=== PATIENT | male | born 1955 | race Caucasian/White ===

== ENCOUNTER 2022-05-11 10:40 | Day surgery (SDC) | payer MEDICARE, MEDICAID ==
[2022-05-11] VITALS (9 sets, daily range): BP systolic 97–149; BP diastolic 58–82
[~2022-05-11] VITALS: Ht 177.8 cm; Wt 79.7 kg
[2022-05-11] MEDS ORDERED: LORazepam 0.5 MG tablet PO PRN (11:10)
[2022-05-11] MEDS ORDERED: diphenhydrAMINE 25mg capsule PO PRN (11:10)
[2022-05-11] MEDS ORDERED: normal saline 1,000 ML IV SCH (11:10)
[2022-05-11] MEDS ORDERED: L. A1CAP2 PO (11:25)
[2022-05-11] MEDS ORDERED: [UNRECOGNIZED DRUG - CODE] PO (11:25)
[2022-05-11] MEDS ORDERED: ALBU18HF2 INH (11:25)
[2022-05-11] MEDS ORDERED: MULT9LIQ6 PO (11:25)
[2022-05-11] MEDS ORDERED: CHOL20002 PO (11:25)
[2022-05-11] MEDS ORDERED: FLUT15.815 (11:25)
[2022-05-11] MEDS ORDERED: FLO110IN (11:25)
[2022-05-11] MEDS ORDERED: ACET-1131 PO (11:25)
[2022-05-11] MEDS ORDERED: MAGN1TAB PO (11:25)
[2022-05-11] MEDS ORDERED: ATEN-27 PO (11:25)
[2022-05-11] MEDS ORDERED: CETI-194 PO (11:25)
[2022-05-11] MEDS ORDERED: [UNRECOGNIZED DRUG - OTHER] PO (11:25)
[2022-05-11 11:43] LABS: BASOPHILS % (AUTO) 0.2 % (0-1); EOSINOPHILS # (AUTO) 0.1 X10'3 (0-0.9); EOSINOPHILS % (AUTO) 2.8 % (0-6); HEMATOCRIT 42.8 % (42.0-52.0); HEMOGLOBIN 14.8 g/dl (14.0-17.9); LYMPHOCYTES # (AUTO) 0.7 X10'3 (1.1-4.8); LYMPHOCYTES % (AUTO) 13.6 % (21-51); MEAN CORPUSCULAR HEMOGLOBIN 30.3 PG (27.0-31.0); MEAN CORPUSCULAR HGB CONC 34.6 g/dL (33.0-36.5); MEAN CORPUSCULAR VOLUME 87.5 FL (78-98); MEAN PLATELET VOLUME 8.7 FL (7.4-10.4); MONOCYTES # (AUTO) 0.6 X10'3 (0-0.9); MONOCYTES % (AUTO) 11.1 % (2-12); NEUTROPHILS # (AUTO) 3.8 X10'3 (1.8-7.7); NEUTROPHILS % (AUTO) 72.3 % (42-75); PLATELET COUNT 159 X10'3 (140-440); RED BLOOD COUNT 4.89 X10'6 (4.70-6.10); RED CELL DISTRIBUTION WIDTH 13.8 % (11.5-14.5); WHITE BLOOD COUNT 5.2 X10'3 (4.5-11.0)
[2022-05-11 11:52] LABS: ALBUMIN 4.2 G/DL (3.4-5.0); ANION GAP 10 (8-16); BLOOD UREA NITROGEN 14 MG/DL (7-18); BUN/CREATININE RATIO 11.2 (5.4-32.0); CALCIUM 9.2 MG/DL (8.5-10.1); CHLORIDE 105 MMOL/L (99-107); CREATININE 1.25 MG/DL (0.60-1.10); GLUCOSE 98 MG/DL (70-104); SODIUM 143 MMOL/L (135-145); TOTAL CARBON DIOXIDE 28.1 MMOL/L (24-32); eGFR 57 ML/MIN
[2022-05-11 11:54] LABS: APTT 32 SECONDS (22-32)
[2022-05-11 11:56] LABS: CHOL/HDL RATIO 2.7 (0.00-4.99); CHOLESTEROL 141 MG/DL (0-200); HDL CHOLESTEROL 53 MG/DL (35-60); LDL CHOLESTEROL 78 MG/DL (50-100); TRIGLYCERIDES 48 MG/DL (20-135)
[2022-05-11] MEDS ORDERED: LIDOcaine 1% (10mg/ml) 2ml vial ONE (11:57)
[2022-05-11] MEDS ORDERED: nitroGLYCERIN-Tridil 50MG/D5W 250 ML IV ONE (11:57)
[2022-05-11] MEDS ORDERED: midazolam 1 mg/ML 2ml injection ONE (11:57)
[2022-05-11] MEDS ORDERED: verapamil 2.5 mg/ml inj IV ONE (11:57)
[2022-05-11] MEDS ORDERED: heparin 1,000unit/ml 10ml vial 10 ML ONE (11:57)
[2022-05-11] MEDS ORDERED: fentaNYL/PF 50MCG/1 ML 2ML syringe ONE (11:57)
[2022-05-11] MEDS ORDERED: iohexol 350MG/ML 100ml bottle IV ONE ×2 (11:58→12:19)
[2022-05-11] MEDS ORDERED: LIDOcaine 1% 30ml preserv. free vial ONE (13:05)
[2022-05-19] MEDS ORDERED: AMIO200T61 PO (14:41)
== END 2022-05-11 17:00 | disposition home or self-care (01) ==
LOC: SSTAY O 10:40
PROVIDERS: ATTEND Student in an Organized Health Care Education/Training Program
DX: R94.39 Abnormal result of other cardiovascular function study (principal); I25.10 Atherosclerotic heart disease of native coronary artery without angina pectoris; I34.0 Nonrheumatic mitral (valve) insufficiency; I48.91 Unspecified atrial fibrillation; Z79.01 Long term (current) use of anticoagulants; Z79.899 Other long term (current) drug therapy; Z98.890 Other specified postprocedural states
CPT/HCPCS: 36415; 80048; 80061; 85025; 85610; 85730; 93005; 93458; 99152; 99153; A6258; C1760; C1769; C1894; J1644; J2250; J3010; J3490; J7030; Q0163; Q9967; A4620

== ENCOUNTER 2022-06-08 11:25 | Outpatient (CLI) | payer MEDICARE, MEDICAID ==
[~2022-06-08 11:25] MED LIST: ACET-1131 PO; ALBU18HF2 INH; AMIO200T67 PO; ATEN-27 PO; CETI-194 PO; CHOL20002 PO; CLOP75TA34 PO; FLO0.4C PO; FLO110IN; HYDR-3964 PO; L. A1CAP2 PO; MAGN1TAB PO; MULT9LIQ6 PO; [UNRECOGNIZED DRUG - CODE] PO; [UNRECOGNIZED DRUG - OTHER] PO
[2022-06-08 12:15] LABS: ANION GAP 8 (8-16); BASOPHILS % (AUTO) 0.3 % (0-1); BLOOD UREA NITROGEN 23 MG/DL (7-18); CHLORIDE 104 MMOL/L (99-107); CREATININE 1.47 MG/DL (0.60-1.10); EOSINOPHILS # (AUTO) 0.1 X10'3 (0-0.9); EOSINOPHILS % (AUTO) 0.6 % (0-6); GLUCOSE 120 MG/DL (70-104); HEMATOCRIT 33.8 % (42.0-52.0); HEMOGLOBIN 11.4 g/dl (14.0-17.9); LYMPHOCYTES # (AUTO) 0.3 X10'3 (1.1-4.8); LYMPHOCYTES % (AUTO) 2.5 % (21-51); MEAN CORPUSCULAR HEMOGLOBIN 29.9 PG (27.0-31.0); MEAN CORPUSCULAR HGB CONC 33.7 g/dL (33.0-36.5); MEAN CORPUSCULAR VOLUME 88.8 FL (78-98); MEAN PLATELET VOLUME 7.7 FL (7.4-10.4); MONOCYTES # (AUTO) 0.6 X10'3 (0-0.9); MONOCYTES % (AUTO) 5.9 % (2-12); NEUTROPHILS # (AUTO) 9.3 X10'3 (1.8-7.7); NEUTROPHILS % (AUTO) 90.7 % (42-75); PLATELET COUNT 260 X10'3 (140-440); POTASSIUM 4.1 MMOL/L (3.5-5.1); RED BLOOD COUNT 3.81 X10'6 (4.70-6.10); RED CELL DISTRIBUTION WIDTH 13.8 % (11.5-14.5); SODIUM 137 MMOL/L (135-145); TOTAL CARBON DIOXIDE 25.4 MMOL/L (24-32); WHITE BLOOD COUNT 10.3 X10'3 (4.5-11.0); eGFR 48 ML/MIN
== END 2022-06-08 23:59 | disposition home or self-care (01) ==
LOC: LAB 11:25
PROVIDERS: ATTEND Surgery
DX: I44.30 Unspecified atrioventricular block (principal); I48.92 Unspecified atrial flutter; I48.91 Unspecified atrial fibrillation; Z95.4 Presence of other heart-valve replacement; Z79.899 Other long term (current) drug therapy
CPT/HCPCS: 36415; 80051; 82565; 82947; 83735; 84520; 85025; 93005

== ENCOUNTER 2022-06-09 19:18 | Emergency (ER) | payer MEDICARE, MEDICAID ==
[~2022-06-09] VITALS: Ht 177.8 cm; Wt 78.6 kg
[2022-06-10] MEDS ORDERED: LIDOcaine 2% 10ml TOPICAL JELLY (Urojet) TP ONE (00:05)
[2022-06-10] MEDS ORDERED: FLO0.4C PO (01:23)
[2022-06-10 01:32] VITALS: BP 104/76
== END 2022-06-10 01:34 | disposition home or self-care (01) ==
LOC: ER 19:20
DX: R33.9 Retention of urine, unspecified (principal); Z88.0 Allergy status to penicillin; Z88.6 Allergy status to analgesic agent
CPT/HCPCS: 51702; 99284; A4340; A4358

== ENCOUNTER 2022-08-24 12:45 | Day surgery (SDC) | payer MEDICARE, MEDICAID ==
[2022-08-20 09:52] LABS: ALBUMIN 4.1 G/DL (3.4-5.0); BASOPHILS % (AUTO) 0.4 % (0-1); BLOOD UREA NITROGEN 22 MG/DL (7-18); BUN/CREATININE RATIO 13.3 (5.4-32.0); CALCIUM 9.2 MG/DL (8.5-10.1); CHLORIDE 105 MMOL/L (99-107); CREATININE 1.65 MG/DL (0.60-1.10); EOSINOPHILS # (AUTO) 0.1 X10'3 (0-0.9); HEMATOCRIT 43.8 % (42.0-52.0); HEMOGLOBIN 14.3 g/dl (14.0-17.9); LYMPHOCYTES # (AUTO) 0.9 X10'3 (1.1-4.8); LYMPHOCYTES % (AUTO) 12.9 % (21-51); MEAN CORPUSCULAR HEMOGLOBIN 26.4 PG (27.0-31.0); MEAN CORPUSCULAR HGB CONC 32.6 g/dL (33.0-36.5); MEAN PLATELET VOLUME 8.8 FL (7.4-10.4); MONOCYTES # (AUTO) 0.5 X10'3 (0-0.9); MONOCYTES % (AUTO) 7.3 % (2-12); NEUTROPHILS # (AUTO) 5.4 X10'3 (1.8-7.7); NEUTROPHILS % (AUTO) 77.4 % (42-75); PLATELET COUNT 181 X10'3 (140-440); POTASSIUM 4.2 MMOL/L (3.5-5.1); RED BLOOD COUNT 5.41 X10'6 (4.70-6.10); RED CELL DISTRIBUTION WIDTH 17.2 % (11.5-14.5); TOTAL CARBON DIOXIDE 25.7 MMOL/L (24-32); WHITE BLOOD COUNT 6.9 X10'3 (4.5-11.0); eGFR 42 ML/MIN
[2022-08-20 09:56] LABS: APTT 27 SECONDS (22-32)
[2022-08-20 10:00] LABS: ANION GAP 10 (8-16); GLUCOSE 116 MG/DL (70-104); SODIUM 141 MMOL/L (135-145)
[~2022-08-24] VITALS: Ht 177.8 cm; Wt 77.0 kg
[2022-08-24] VITALS (38 sets, daily range): BP systolic 68–123; BP diastolic 30–85
[~2022-08-24 12:45] MED LIST changes: -FLO0.4C PO
[2022-08-24] MEDS ORDERED: normal saline 1000ml 1,000 ML IV SCH (13:05)
[2022-08-24] MEDS ORDERED: fentaNYL/PF 50MCG/1 ML 2ML syringe IV ONE (13:05)
[2022-08-24] MEDS ORDERED: MIDAZolam 1mg/ml 10ml vial IV ONE (13:05)
[2022-08-24] MEDS ORDERED: METO50TA16 PO (13:59)
--- NOTE | 2022-08-24 16:00 | NUR ---
Upon entering the room to prepare for BLAINE/Cardioversion while hooking up pt to monitor pt states he is feeling his heart "racing" he believes he's in SVT. Confirmation of SVT on mission assessment specialist. VSS, pt A&O talking. Pt states he does this at home. When he has this feeling at home he lies on the floor and performs various Valsalva manuvers, including breath holding, carotid massage, and strong coughing. Dr. Georgina Ahumada notified of change in heart rhythm and of pt status.
--- NOTE | 2022-08-24 16:07 | NUR ---
Valsalva maneuvers attempted by pt including breath holding, strong coughing, bearing down, blowing through a syringe, none of which have changed heart rhythm. Dr. Georgina Ahumada notified.
[2022-08-24] MEDS ORDERED: metoprolol tartrate 1mg/ml inj IV ONE (16:15)
--- NOTE | 2022-08-24 16:20 | NUR ---
Dr. Georgina Ahumada notified of continued heart rhythm, orders received.
--- NOTE | 2022-08-24 16:23 | NUR ---
Lopressor 5mg IV given, no change in heart rhythm.
--- NOTE | 2022-08-24 16:40 | NUR ---
Pt BP dropped fluid bolus of 250ml given. Notified Dr. Georgina Ahumada. currently in sterile procedure will come evaluate pt ARCHIE.
[2022-08-24] MEDS ORDERED: adenosine 3mg/ml 2ml vial IV ONE (17:05)
--- NOTE | 2022-08-24 17:10 | NUR ---
Dr. Georgina Ahumada at bedside, fluid bolus 500ml given to pt. Additional Orders received.
--- NOTE | 2022-08-24 17:19 | NUR ---
Adenosine 6mg IV given with rapid 10ml NS flush, no change in pt heart rhythm.
[2022-08-24] MEDS ORDERED: adenosine 3mg/ml 2ml vial IV STA (17:20)
--- NOTE | 2022-08-24 17:20 | NUR ---
Adenosine 6mg IV given with rapid 10ml NS flush, no change in pt heart rhythm.
--- NOTE | 2022-08-24 17:27 | NUR ---
Adenosine 12mg IV given with rapid 10ml NS flush, no change in pt heart rhythm.
--- NOTE | 2022-08-24 17:28 | NUR ---
Decision made by Dr. Georgina Ahumada to perform synch cardioversion prior to BLAINE due to pt unstable status.
--- NOTE | 2022-08-24 17:29 | NUR ---
Successful synch cardioversion performed. Pt converting to SR/SB
--- NOTE | 2022-08-24 17:39 | NUR ---
BLAINE completed, pt keysha well. Pt awake and able to follow commands.
== END 2022-08-24 18:35 | disposition home or self-care (01) ==
LOC: SSTAY O 12:45
PROVIDERS: ATTEND Student in an Organized Health Care Education/Training Program
DX: I48.91 Unspecified atrial fibrillation (principal); I08.0 Rheumatic disorders of both mitral and aortic valves; I10 Essential (primary) hypertension; J44.9 Chronic obstructive pulmonary disease, unspecified; Z88.8 Allergy status to other drugs, medicaments and biological substances; Z88.0 Allergy status to penicillin; Z79.899 Other long term (current) drug therapy
CPT/HCPCS: 36415; 80048; 85025; 85610; 85730; 92960; 93005; 93312; 93325; J0153; J2250; J3010; J3490; J7030; A4620